=== PATIENT | male | born 1955 | race Caucasian/White ===

== ENCOUNTER 2022-11-25 17:40 | Inpatient (IN) | payer OTHER, MEDICAID ==
[~2022-11-25] VITALS: Ht 167.6 cm; Wt 106.6 kg
[~2022-11-25 17:40] MED LIST: GLIP5TAB26 PO; HYDR-3917 PO; IBUP-1971 PO; LISI-652 PO; METF1000 PO
[2022-11-25 17:44] VITALS: BP_SYST 160
--- NOTE | 2022-11-25 17:44 | NUR ---
Placed in room 05 . [address] on [address] monkey, blood pressure machine and pulse oximeter. To gown for exam. Side rails up. .
--- NOTE | 2022-11-25 17:56 | NUR ---
PT PRESENTS TO ED WITH C/O SOB, COUGH THAT HAS LASTED LONGER THAN 2 MONTHS, SAYS PHELM IS CLEAR, THROAT HURTS, EARS HURT. YESTERDAY THE SOB STARTED AND HE COULD NO LONGER TOLERATE THE SHORTNESS OF BREATH. NAD, EVEN UNLABORED SHALLOW RESPIRATIONS, SKIN WARM AND INTACT. 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
[2022-11-25] MEDS ORDERED: LIDOCAINE VISCOUS 2%, 15 ML UDC MM ONE (18:00)
[2022-11-25 18:17] LABS: BASOPHILS # (AUTO) 0.1 K/uL (0.0-0.2); BASOPHILS % (AUTO) 0.7 % (0.0-2.0); EOSINOPHILS # (AUTO) 0.6 K/uL (0.0-0.4); EOSINOPHILS % (AUTO) 7.1 % (0.0-4.0); HEMOGLOBIN 14.8 g/dL (14.0-18.0); LYMPHOCYTES # (AUTO) 2.2 K/uL (1.0-5.5); LYMPHOCYTES % (AUTO) 23.5 % (20.5-51.5); MEAN CORPUSCULAR HEMOGLOBIN 35 pg (27-31); MEAN CORPUSCULAR HGB CONC 35 % (32-36); MEAN CORPUSCULAR VOLUME 99 fL (79.0-98.0); MONOCYTES # (AUTO) 0.7 K/uL (0.0-1.0); MONOCYTES % (AUTO) 7.9 % (1.7-9.3); NEUTROPHILS # (AUTO) 5.6 K/uL (1.8-7.7); NEUTROPHILS % (AUTO) 60.8 % (40.0-70.0); PLATELET COUNT (AUTO) 286 K/uL (130-430); RED BLOOD CELL COUNT(AUTO) 4.24 MIL/uL (4.2-6.2); RED CELL DISTRIBUTION WIDTH 12.6 % (9.0-15.0); WHITE BLOOD COUNT (AUTO) 9.1 K/uL (4.8-10.8)
[2022-11-25 18:26] LABS: ANION GAP 9 (5-15); CHLORIDE 97 mmol/L (98-107); CREATININE 0.85 mg/dL (0.55-1.30); GLUCOSE 153 mg/dL (70-99); UREA NITROGEN, BLOOD 11 mg/dL (8-21)
[2022-11-25 18:29] LABS: GFR AFRICAN AMERICAN 116 mL/min (>90)
[2022-11-25 18:33] LABS: ALANINE AMINOTRANSFERASE 21 U/L (12-78); ALBUMIN 3.9 g/dL (3.4-4.8); ASPARTATE AMINOTRANSFERASE 17 U/L (10-37); TOTAL BILIRUBIN 0.4 mg/dL (0.0-1.0)
[2022-11-25 18:44] LABS: STREPTOCOCCUS A SCREEN (RAPID) NEGATIVE (NEGATIVE)
[2022-11-25] MEDS ORDERED: FUROSEMIDE 100 MG/10 ML VIAL IVP ONE (18:45)
--- NOTE | 2022-11-25 19:10 | NUR ---
FAMILY CONTACT YVETTE,
--- NOTE | 2022-11-25 19:10 | NUR ---
PT NAD, AWARE OF BEING ADMITTED, EVEN UNLABORED RESPIRATIONS.
--- NOTE | 2022-11-25 19:15 | NUR ---
Pt report received. Pt AAOx4, denies c/o C/P or SOB at this time, no needs verbalized.
--- NOTE | 2022-11-25 19:15 | NUR ---
REPORT GIVEN TO WHITNEY GARCIA
--- NOTE | 2022-11-25 19:40 | NUR ---
Admit bed requested Patient will be admitted to care of Dion Riddle Admitted to Tele unit. Diagnosis CHF Inpatient (Yes or No) Yew Observation (Yes or No) Yes Orientation concerns or request close to nursing station (Yes or No) No Covid Status Neg On vent or bipap No Isolation requirements No Needs a sitter No From Home (Yes or if No enter name of facility) Yes Requires Dialysis (Yes or No) No Med Rec Completed (Yes of No) No
[2022-11-25] MEDS ORDERED: FUROSEMIDE 40 MG/4 ML VIAL ONE (19:53)
[2022-11-25] MEDS ORDERED: FUROSEMIDE 40 MG/4 ML VIAL IVP ONE (20:00)
--- NOTE | 2022-11-25 21:24 | NUR ---
Medication reconciliation completed with information provided by patient. Any prior medication reconciliation on file was reviewed and corrected. Pt states that he takes an unknown B/P medication.
--- NOTE | 2022-11-25 21:33 | NUR ---
Patient will be admitted to care of Dion Hernandez Admitted to Tele unit. Will go to room 133 B. Belongings list completed. Complete and up to date summary report printed. SBAR report to be given at bedside with opportunity for questions.
--- NOTE | 2022-11-25 21:45 | NUR ---
PT ADMITTED TO [facility]. PT AOX4 ABLE TO MAKE NEEDS KNOWN. PT CURRENTLY ON RA. IV IN RAC 20G SL. PT HAS URINAL AT BEDSIDE. PT EDUCATED TO USE CALL LIGHT IF HE NEEDS ASSISTANCE
[2022-11-25 22:30] VITALS: BP_SYST 120
[2022-11-25] MEDS ORDERED: ONDANSETRON HCL 4 MG/2 ML VIAL IVP PRN (22:45)
[2022-11-25] MEDS ORDERED: INSULIN REGULAR, HUMAN 100 UNITS/ML, 3 ML VIAL (humuLIN R) SUBCUT PRN (22:45)
[2022-11-25] MEDS ORDERED: LORazepam 2 MG/ML VIAL IVP PRN (22:45)
[2022-11-25] MEDS ORDERED: ACETAMINOPHEN 325 MG TABLET PO PRN (22:45)
[2022-11-26] VITALS (8 sets, daily range): BP systolic 110–138
[2022-11-26] MEDS ORDERED: ALBUTEROL SULFATE 0.083% 2.5 MG/3 ML VIAL.NEB INH PRN
[2022-11-26] MEDS ORDERED: BENZOCAINE/MENTHOL 1 EACH LOZENGE MM PRN
[2022-11-26] MEDS ORDERED: IPRATROPIUM BROM 0.5 MG/2.5 ML VIAL.NEB (ATROVENT) INH PRN
[2022-11-26] MEDS: traZODone HCL 50 MG TABLET (DESYREL) PO PRN ×2 (00:21→22:47)
--- NOTE | 2022-11-26 04:33 | NUR ---
CONSULTATION PAGED REASON FOR CONSULTATION: CHF WAS CONSULT CALLED? Y PERSON WHO WAS NOTIFIED: MARLEY Trevino CONSULTING PHYSICIAN: Belinda ROACH DRAFTING INSTRUCTOR SPECIALTY: CARDIO DRAFTING INSTRUCTOR PHONE NUMBER: [phone] REQUESTING PHYSICIAN: Vannesa ROACH
[2022-11-26] MEDS: NORMAL SALINE 5 ML DISP.SYRIN IVF SCH ×3 (05:15→22:49)
[2022-11-26] MEDS ORDERED: NORMAL SALINE 5 ML DISP.SYRIN IVF SCH (06:00)
[2022-11-26 07:39] LABS: CALCIUM 9.3 mg/dL (8.4-11.0); CREATININE 0.86 mg/dL (0.55-1.30); PHOSPHORUS 4.5 mg/dL (2.7-4.5)
--- NOTE | 2022-11-26 07:58 | NUR ---
OPENING NOTES: PT LYING BED WITH EYES CLOSED. RESPONDED TO HIS NAME.CHECKED PATENCY OF SALINE LOCK ON R FA. BREATHING EVEN AND NONLABORED ON RA. NO S/S OF ACUTE DISTRESS OR PAIN. CALL LIGHT IN REACH. SAFETY CHECKS IN PLACE.
[2022-11-26] MEDS: metFORMIN HCL 500 MG TABLET PO SCH ×2 (09:15→22:47)
[2022-11-26] MEDS: glipiZIDE XL 5 MG TAB ( GLUCOTROL XL) PO SCH ×2 (09:15→22:47)
[2022-11-26] MEDS: lisinopriL 5 MG TABLET PO SCH ×2 (09:16→22:48)
[2022-11-26] MEDS: guaiFENesin/DEXTROMETHORPHAN 10 ML UDC PO PRN ×2 (09:22→22:47)
[2022-11-26 09:29] LABS: BASOPHILS % (AUTO) 0.4 % (0.0-2.0); EOSINOPHILS # (AUTO) 0.6 K/uL (0.0-0.4); EOSINOPHILS % (AUTO) 6.5 % (0.0-4.0); HEMATOCRIT 41.2 % (36-54); HEMOGLOBIN 14.6 g/dL (14.0-18.0); LYMPHOCYTES # (AUTO) 2.1 K/uL (1.0-5.5); LYMPHOCYTES % (AUTO) 23.2 % (20.5-51.5); MEAN CORPUSCULAR HEMOGLOBIN 35 pg (27-31); MEAN CORPUSCULAR HGB CONC 35 % (32-36); MEAN CORPUSCULAR VOLUME 98 fL (79.0-98.0); MONOCYTES # (AUTO) 0.7 K/uL (0.0-1.0); MONOCYTES % (AUTO) 7.5 % (1.7-9.3); NEUTROPHILS # (AUTO) 5.6 K/uL (1.8-7.7); NEUTROPHILS % (AUTO) 62.4 % (40.0-70.0); PLATELET COUNT (AUTO) 275 K/uL (130-430); RED BLOOD CELL COUNT(AUTO) 4.21 MIL/uL (4.2-6.2); RED CELL DISTRIBUTION WIDTH 12.8 % (9.0-15.0); WHITE BLOOD COUNT (AUTO) 8.9 K/uL (4.8-10.8)
--- NOTE | 2022-11-26 12:00 | NUR ---
ROUNDS: PT SITTING EDGE OF BED. NO S/S OF DISTRESS. PAIN REPORTED. BREATHING IS EVEN AND UNLABORED ON RA. ALL NEEDS MET AT THIS TIME, SAFETY CHECKS MADE AND CALL LIGHT WITHIN REACH.
[2022-11-26] MEDS ORDERED: HYDROcodone/ACETAMIN 5-325 MG TAB (NORCO/ VICODIN) PO PRN (12:30)
[2022-11-26] MEDS ORDERED: NALOXONE HCL 0.4 MG/ML AMP (NARCAN) IVP PRN ×2 (12:30)
[2022-11-26] MEDS ORDERED: HYDROcodone/ACETAMIN 10-325 MG TAB PO PRN (12:30)
[2022-11-26] MEDS ORDERED: P-EPHED SUL/LORATADINE 1 EACH TAB.SR.12H PO ONE (13:30)
[2022-11-26] MEDS ORDERED: lisinopriL 5 MG TABLET PO SCH (14:15)
[2022-11-26] MEDS ORDERED: FLUTICASONE PROPIONATE 50 mCg/SPRAY 16 GM NS ONE (14:30)
--- NOTE | 2022-11-26 16:10 | NUR ---
: SPOKE WITH DR ROACH ABOUT DVT PROPHYLACTIC. HE ORDERED SQD'S FOR THE PT.
--- NOTE | 2022-11-26 17:04 | NUR ---
CRITICAL LAB DANIEL FROM LAB REPORTED TROPONIN OF [phone]. CALLING DR[address] DUGGAN NOW TO REPORT. Addendum: 11/26/22 at 1724 by Idalia Black LVN WRONG PT NOTES.
--- NOTE | 2022-11-26 17:10 | NUR ---
ST EVALUATION COMPLETED. ST TX NOT INDICATED AT THIS TIME. RECOMMEND PO DIET OF REGULAR TEXTURE/THIN LIQUIDS. DISTANT SUPERVISION AND FULL ASPIRATION PRECAUTIONS
--- NOTE | 2022-11-26 18:16 | NUR ---
CLOSING NOTES: PT IS SITTING EDGE OF BED FEEDING HIMSELF DINNER. NO S/S OF DISTRESS OR PAIN REPORTED. BREATHING IS EVEN AND UNLABORED ON RA. ALL NEEDS MET AT THIS TIME, SAFETY CHECKS MADE AND CALL LIGHT WITHIN REACH. WILL ENDORSE TO ELEVATOR INSTALLER APPRENTICE.
[2022-11-26] MEDS: P-EPHED SUL/LORATADINE 1 EACH TAB.SR.12H PO SCH (22:47)
[2022-11-26] MEDS: FLUTICASONE PROPIONATE 50 mCg/SPRAY 16 GM NS SCH (22:49)
[2022-11-27 04:00] VITALS: BP_SYST 117
[2022-11-27] MEDS: NORMAL SALINE 5 ML DISP.SYRIN IVF SCH ×2 (05:45→14:00)
[2022-11-27 07:27] LABS: ALBUMIN 3.5 g/dL (3.4-4.8); CALCIUM 9.2 mg/dL (8.4-11.0); CREATININE 0.95 mg/dL (0.55-1.30); TOTAL BILIRUBIN 0.5 mg/dL (0.0-1.0)
[2022-11-27 08:00] VITALS: BP_SYST 101
--- NOTE | 2022-11-27 08:00 | NUR ---
Initial notes Alert, ambulate with steady gait. Denies any pain or shortness of breath. complain of sorethroat, will give medications. safety precaution observed. Call light within reach
[2022-11-27] MEDS: glipiZIDE XL 5 MG TAB ( GLUCOTROL XL) PO SCH (09:22)
[2022-11-27] MEDS: FLUTICASONE PROPIONATE 50 mCg/SPRAY 16 GM NS SCH (09:22)
[2022-11-27] MEDS: metFORMIN HCL 500 MG TABLET PO SCH (09:23)
[2022-11-27] MEDS: P-EPHED SUL/LORATADINE 1 EACH TAB.SR.12H PO SCH (09:24)
[2022-11-27] MEDS: lisinopriL 5 MG TABLET PO SCH (09:24)
[2022-11-27 09:46] LABS: BASOPHILS # (AUTO) 0.1 K/uL (0.0-0.2); BASOPHILS % (AUTO) 1.3 % (0.0-2.0); EOSINOPHILS # (AUTO) 0.6 K/uL (0.0-0.4); EOSINOPHILS % (AUTO) 6.2 % (0.0-4.0); HEMATOCRIT 42.8 % (36-54); HEMOGLOBIN 14.7 g/dL (14.0-18.0); LYMPHOCYTES # (AUTO) 1.8 K/uL (1.0-5.5); LYMPHOCYTES % (AUTO) 19.7 % (20.5-51.5); MEAN CORPUSCULAR HEMOGLOBIN 35 pg (27-31); MEAN CORPUSCULAR HGB CONC 34 % (32-36); MEAN CORPUSCULAR VOLUME 101 fL (79.0-98.0); MONOCYTES # (AUTO) 0.6 K/uL (0.0-1.0); MONOCYTES % (AUTO) 6.8 % (1.7-9.3); NEUTROPHILS # (AUTO) 6.1 K/uL (1.8-7.7); PLATELET COUNT (AUTO) 272 K/uL (130-430); RED BLOOD CELL COUNT(AUTO) 4.24 MIL/uL (4.2-6.2); RED CELL DISTRIBUTION WIDTH 12.9 % (9.0-15.0); WHITE BLOOD COUNT (AUTO) 9.3 K/uL (4.8-10.8)
[2022-11-27] MEDS ORDERED: P-EP-92 PO (10:31)
[2022-11-27] MEDS ORDERED: AZIT500T10 PO (10:31)
[2022-11-27] MEDS ORDERED: GUAI5SYR PO (10:31)
[2022-11-27 12:03] VITALS: BP_SYST 119
--- NOTE | 2022-11-27 12:06 | NUR ---
Notes- Resting in bed, Seen by Baseball Inspector And Repairer.
[2022-11-27 15:56] VITALS: BP_SYST 119
--- NOTE | 2022-11-27 16:25 | NUR ---
DISCHARGE PATIENT HOME. DENIES ANY CHEST PAIN OR SHORTNESS OF BREATH. DISCHARGE INSTRUCTION GIVEN AND DISCUSSED WITH PATIENT. DISCUSSED FOLLOW UP CARE WITH PRIMARY CARE DOCTOR. PT VERBALIZE UNDERSTANDINGS ARM BAND AND IVL REMOVED..
--- NOTE | 2022-11-27 16:28 | NUR ---
CHF/APPOINTMENTS PER PT, [place] P[place], BUT PATIENT WAS LIVING NOW IN [place] AND LOOKING FOR PRIMARY DOCTOR. CALLED DR. ROACH OFFICE TO MAKE AN APPOINTMENT BUT PER STAFF HE STILL HAVE PRIMARY PHYSICIAN SHOWING IN THE SYSTEM S AND PATIENT NEED TO FOLLOW UP ON HIS PCP. INSTRUCTED PATIENT TO CHANGE HIS PRIMARY DOCTOR AND HE CAN CALL DR. ROACH OFFICE IF HE CHOOSE TO.
== END 2022-11-27 16:25 | disposition home or self-care (01) | DRG 189 ==
LOC: SED 17:40 → STU 19:07
PROVIDERS: ADMIT Preventive Medicine Preventive Medicine/Occupational Environmental Medicine; ATTEND Preventive Medicine Preventive Medicine/Occupational Environmental Medicine
DX: J96.00 Acute respiratory failure, unspecified whether with hypoxia or hypercapnia (principal); E87.1 Hypo-osmolality and hyponatremia; I16.0 Hypertensive urgency; I50.9 Heart failure, unspecified; E66.9 Obesity, unspecified; Z20.822 Contact with and (suspected) exposure to COVID-19; E11.65 Type 2 diabetes mellitus with hyperglycemia; I11.0 Hypertensive heart disease with heart failure; Z88.1 Allergy status to other antibiotic agents; Z79.899 Other long term (current) drug therapy; Z68.37 Body mass index [BMI] 37.0-37.9, adult
CPT/HCPCS: 36415; 71045; 80048; 80053; 83735; 83880; 84100; 84484; 85025; 85379; 86403; 87081; 92610-GN; 93005; 93306; 93970; 94760; 96374; 97116-GP; 97163-GP; 99285; G0378; J1940; J2001